=== PATIENT | male | born 1945 | race Caucasian/White ===

== ENCOUNTER 2021-02-07 15:47 | Emergency (ER) | payer OTHER ==
[2021-02-07 16:14] LABS: HEMOGLOBIN 14.5 gm/dl (14.0-17.5); RED BLOOD COUNT 4.68 M/UL (4.20-5.50); WHITE BLOOD COUNT 8.1 K/UL (4.5-11.0)
[2021-02-07 16:50] LABS: BUN/CREATININE RATIO 23 (0-10)
== END 2021-02-07 19:52 | disposition home or self-care (01) ==
LOC: ER1 15:47
PROVIDERS: Preventive Medicine Occupational Medicine
DX: R07.89 Other chest pain (principal); G89.29 Other chronic pain; E11.9 Type 2 diabetes mellitus without complications; I10 Essential (primary) hypertension; E78.5 Hyperlipidemia, unspecified; Z88.5 Allergy status to narcotic agent
CPT/HCPCS: 71045; 80053; 82550; 82553; 83735; 83874; 84484; 85025; 93005; 99285